=== PATIENT | male | born 1980 | race African-American/Black ===

== ENCOUNTER 2018-06-10 03:39 | Emergency (ER) | payer SELFPAY | END 2018-06-10 05:10 | disposition home or self-care (01) | LOC: ERS 03:39 | DX: L02.811 Cutaneous abscess of head [any part, except face] (principal); E78.00 Pure hypercholesterolemia, unspecified; I10 Essential (primary) hypertension; F17.210 Nicotine dependence, cigarettes, uncomplicated; Z79.899 Other long term (current) drug therapy | CPT/HCPCS: 10060 ==